=== PATIENT | female | born 1975 | race Caucasian/White ===

== ENCOUNTER → 2019-07-26 | Outpatient (CLI) | payer OTHER | LOC: MC.RAD 12:57 | DX: N64.89 Other specified disorders of breast (principal) | CPT/HCPCS: G0279 ==

== ENCOUNTER 2022-02-02 09:45 | Outpatient (RCR) | payer OTHER | END 2022-02-03 | disposition still patient (30) | LOC: WSPT | DX: M54.12 Radiculopathy, cervical region (principal) ==

== ENCOUNTER 2022-03-26 09:30 | Outpatient (RCR) | payer OTHER | END 2022-04-05 | disposition home or self-care (01) | LOC: WSPT | DX: M54.12 Radiculopathy, cervical region (principal) ==